=== PATIENT | male | born 1970 | race Caucasian/White ===

== ENCOUNTER 2016-09-16 16:37 | Emergency (ER) | payer OTHER ==
[~2016-09-16] VITALS: Ht 182.9 cm; Wt 140.0 kg
[~2016-09-16 16:37] MED LIST: LEVA750T9 PO
[2016-09-16 16:40] VITALS: BP 162/86; PULSE 74; RESP 16; TEMP 98.7; O2SAT 96
--- NOTE | 2016-09-16 17:02 | PD ---
HPI Chief Complaint: Musculoskeletal Complaint Time Seen by Provider: 16:54 Travel History International Travel<30 days: No Contact w/Intl Traveler<30days: No Traveled to known affect area: No History of Present Illness HPI 46-year-old male presents to the emergency department for evaluation right elbow pain. Patient states he's had chronic elbow pain for several years. He states he always has slightly limited extension due to pain. However, this morning, he had worsening range of motion with increasing pain. Patient denies a specific injury. He denies any fevers or chills. He states he has never followed up for this issue. He did take some ibuprofen this morning and has more extension than he did earlier. He denies any open wounds. Patient states it as a dull ache over the entire joint. He denies any swelling, erythema, warmth. He denies any loss of sensation. He has no chronic medical problems and takes no prescribed medications. PFSH Past Medical History Diminished Hearing: No Kidney Stones: Yes Past Surgical History Abdominal Surgery: Yes (HERNIA REPAIR INFANT) Other Surgery: Yes (HERNIA SX AN INFANT) Social History Alcohol Use: Yes (OCC) Tobacco Use: No Substance Use: No Allergies-Medications (Allergen,Severity, Reaction): Coded Allergies: No Known Allergies (Verified , 09/16/16) Reported Meds & Prescriptions Reported Meds & Active Scripts Active No Active Prescriptions or Reported Medications Review of Systems Except as stated in HPI: all other systems reviewed are Neg Physical Exam Narrative GENERAL: Well-nourished, well-developed male patient, ambulatory. Afebrile. SKIN: Focused skin assessment warm/dry. No erythema or warmth over right elbow. No edema. HEAD: Normocephalic. Atraumatic. EYES: No scleral icterus. No injection or drainage. NECK: Supple, trachea midline. No JVD or lymphadenopathy. CARDIOVASCULAR: Regular rate and rhythm without murmurs, gallops, or rubs. Right radial pulse is 2+. Patient has full sensation distal right upper extremity. RESPIRATORY: Breath sounds equal bilaterally. No accessory muscle use. Lungs sounds are clear to auscultation. GASTROINTESTINAL: Abdomen soft, non-tender, nondistended. MUSCULOSKELETAL: No cyanosis, or edema. Patient has slightly limited extension due to pain. He has full flexion. No reproducible tenderness to palpation. BACK: Nontender without obvious deformity. No CVA tenderness. Data Data Last Documented VS Vital Signs Date Time Temp Pulse Resp B/P Pulse Ox O2 Delivery O2 Flow Rate FiO2 09/16/16 16:40 98.7 74 16 162/86 96 Orders Elbow, Complete (4 Vws) (09/16/16 ) Splint Or Brace Apply/Monitor (09/16/16 17:43) MDM Medical Decision Making Medical Screen Exam Complete: Yes Emergency Medical Condition: Yes Medical Record Reviewed: Yes Interpretation(s) x-ray right elbow - CONCLUSION: 1. Moderate osteoarthritis with small joint effusion and probable loose bodies anteriorly. Differential Diagnosis Tendinitis versus bursitis versus chronic elbow pain Narrative Course 46-year-old male presents to the emergency department for evaluation right elbow pain that worsened this morning without injury. No evidence of septic joint on exam. Patient does appear well. X-ray of the right elbow is ordered and pending. X-ray of the right elbow shows moderate osteoarthritis with small joint effusion and probable loose bodies anteriorly. I discussed these findings with the patient. I encouraged him to follow-up with an orthopedist. He'll be provided a sling for comfort. He is instructed to perform range of motion exercises. He verbalizes agreement and understanding. The patient was discharged in stable condition with instructions, including return instructions and follow up instructions. Diagnosis Primary Impression: Osteoarthritis of right elbow Qualified Code: M19.021 - Primary osteoarthritis of right elbow Referrals: Orthopedist call for appointment Patient Instructions: General Instructions, Osteoarthritis (ED) Additional Instructions: Ice for 20 minutes 4-5 times daily. Wear sling for comfort. Make sure you perform range of motion exercises. Take [id number] ibuprofen every 6-8 hours as needed for pain. Follow-up with an orthopedist. Return to the emergency department for any acute worsening of symptoms. Med/Other Pt SpecificInfo: No Change to Meds Scripts No Active Prescriptions or Reported Meds Disposition: 01 DISCHARGE HOME Condition: Stable Madalyn Wahl Sep 16, 2016 17:02
--- NOTE | 2016-09-16 17:36 | RADRPT ---
EXAM DATE/TIME: 09/16/2016 17:03 [facility] COMPARISON: No previous studies available for comparison. INDICATIONS : Elbow pain. MEDICAL HISTORY : None. SURGICAL HISTORY : None. ENCOUNTER: Initial ACUITY: 1 day PAIN SCORE: 8/10 LOCATION: Right upper extremity elbow FINDINGS: There is degenerative change at the elbow joint with moderate osteoarthritis and some probable loose bodies anteriorly. There is no acute fracture seen. Small joint effusion. CONCLUSION: 1. Moderate osteoarthritis with small joint effusion and probable loose bodies anteriorly. Ramon Calix MD on September 16, 2016 at 17:30 Board Certified Radiologist. This report was verified electronically.
== END 2016-09-16 18:01 | disposition home or self-care (01) ==
LOC: PHED 16:37
DX: M19.021 Primary osteoarthritis, right elbow (principal)
CPT/HCPCS: 73080; 99283